=== PATIENT | male | born 1940 | race Caucasian/White ===

== ENCOUNTER → 2017-05-11 | Outpatient (CLI) | payer OTHER | END | disposition home or self-care (01) | LOC: CFH 11:12 | PROVIDERS: ATTEND Internal Medicine | DX: M25.552 Pain in left hip (principal); M79.605 Pain in left leg | CPT/HCPCS: 72170 ==

== ENCOUNTER → 2018-12-30 | Outpatient (CLI) | payer MEDICARE | END | disposition home or self-care (01) | LOC: RAD 09:40 | PROVIDERS: ATTEND Internal Medicine | DX: I82.411 Acute embolism and thrombosis of right femoral vein (principal); I82.511 Chronic embolism and thrombosis of right femoral vein; I21.19 ST elevation (STEMI) myocardial infarction involving other coronary artery of inferior wall; R94.31 Abnormal electrocardiogram [ECG] [EKG] | CPT/HCPCS: 93005 ==

== ENCOUNTER → 2021-02-11 | Outpatient (CLI) | payer MEDICARE ==
[2021-02-11 10:29] LABS: BASOPHILS % (AUTO) 1 % (0-1); EOSINOPHILS % (AUTO) 1 % (1-7); LYMPHOCYTES % (AUTO) 25 % (22-44); MEAN CORPUSCULAR HGB CONC 34.6 g/dL (33.2-36.2); MEAN PLATELET VOLUME 6.6 fL (7.4-10.4); MONOCYTES % (AUTO) 9 % (2-9); NEUTROPHILS % (AUTO) 65 % (42-75); PLATELET COUNT 425 x10^3/uL (130-400); RED BLOOD COUNT 4.52 x10^6/uL (4.38-5.82); RED CELL DISTRIBUTION WIDTH 16.7 % (9.4-14.8)
[2021-02-11 10:30] LABS: MD NO
[2021-02-11 10:33] LABS: ALANINE AMINOTRANSFERASE 15 U/L (12-78); ALBUMIN 3.2 g/dL (3.4-5.0); ANION GAP 7 mmol/L (5-15); CALCIUM 9.1 mg/dL (8.5-10.1); CHLORIDE 102 mmol/L (98-107)
[2021-02-11 10:35] LABS: INTERNATIONAL NORMALIZED RATIO 1.11 (0.93-1.1); PROTHROMBIN TIME 11.9 Seconds (9.6-11.5)
[2021-02-11 10:36] LABS: ALKALINE PHOSPHATASE 83 U/L (45-117); CREATININE 0.68 mg/dL (0.7-1.3); TOTAL PROTEIN 7.3 g/dL (6.4-8.2)
== END | disposition home or self-care (01) ==
LOC: LAB 09:23
PROVIDERS: ATTEND Internal Medicine
DX: Z01.818 Encounter for other preprocedural examination (principal); E11.9 Type 2 diabetes mellitus without complications; R91.8 Other nonspecific abnormal finding of lung field; I49.3 Ventricular premature depolarization; I48.91 Unspecified atrial fibrillation
CPT/HCPCS: 36415; 71046; 80053; 83036; 85025; 85610; 85730; 93005

== ENCOUNTER → 2021-04-12 | Outpatient (CLI) | payer MEDICARE | END | disposition home or self-care (01) | LOC: CVU 07:28 | PROVIDERS: ATTEND Internal Medicine Cardiovascular Disease | DX: I35.8 Other nonrheumatic aortic valve disorders (principal); I48.0 Paroxysmal atrial fibrillation; I87.2 Venous insufficiency (chronic) (peripheral); R68.89 Other general symptoms and signs; I10 Essential (primary) hypertension; Z86.718 Personal history of other venous thrombosis and embolism | CPT/HCPCS: 93306 ==

== ENCOUNTER → 2021-04-26 | Outpatient (CLI) | payer MEDICARE | END | disposition home or self-care (01) | LOC: CVU 13:25 | PROVIDERS: ATTEND Internal Medicine Cardiovascular Disease | DX: I83.93 Asymptomatic varicose veins of bilateral lower extremities (principal); I48.0 Paroxysmal atrial fibrillation; R68.89 Other general symptoms and signs; I87.2 Venous insufficiency (chronic) (peripheral); Z86.718 Personal history of other venous thrombosis and embolism | CPT/HCPCS: 93922; 93970 ==